=== PATIENT | male | born 1960 | race Caucasian/White ===

== ENCOUNTER 2017-07-07 22:00 | Inpatient (IN) | payer OTHER ==
[~2017-07-07] VITALS: Ht 172.7 cm; Wt 75.0 kg
[~2017-07-07 22:00] MED LIST: ALBU2.5V13 NEB; ASPI-1071 PO; ATOR20TA66 PO; HYDR-3564 PO; METO25TA6 PO; NITR0.4T48 SL; OMEP40CA37 PO; TICA90TA PO
[2017-07-07] MEDS ORDERED: ondansetron/PF 4mg/2ml inj IV ONE (22:55)
[2017-07-07] MEDS ORDERED: morphine 4 MG/ML inj SYRINge IV ONE (22:55)
[2017-07-07] MEDS ORDERED: normal saline 1000ML IV soln IVB ONE (22:55)
[2017-07-07 23:28] LABS: BASOPHILS % (AUTO) 0.1 % (0-1); EOSINOPHILS # (AUTO) 0.1 X10'3 (0-0.9); EOSINOPHILS % (AUTO) 0.4 % (0-6); HEMATOCRIT 44.3 % (42.0-52.0); HEMOGLOBIN 15.3 g/dl (14.0-17.9); LYMPHOCYTES % (AUTO) 5.9 % (21-51); MEAN CORPUSCULAR HEMOGLOBIN 31.1 PG (27.0-31.0); MEAN CORPUSCULAR HGB CONC 34.6 % (33.0-36.5); MEAN CORPUSCULAR VOLUME 89.8 FL (78-98); MEAN PLATELET VOLUME 9.6 FL (7.4-10.4); MONOCYTES # (AUTO) 0.6 X10'3 (0-0.9); MONOCYTES % (AUTO) 3.5 % (2-12); NEUTROPHILS # (AUTO) 15.6 X10'3 (1.8-7.7); NEUTROPHILS % (AUTO) 90.1 % (42-75); PLATELET COUNT 245 X10'3 (140-440); RED BLOOD COUNT 4.94 X10'6 (4.70-6.10); RED CELL DISTRIBUTION WIDTH 13.4 % (11.5-14.5); WHITE BLOOD COUNT 17.3 X10'3 (4.5-11.0)
[2017-07-07] MEDS ORDERED: CIPROFLOXIN PO (23:30)
[2017-07-07] MEDS ORDERED: CLOP75TA15 PO (23:30)
[2017-07-07 23:46] LABS: CLARITY,URINE Clear (Clear); COLOR,URINE Yellow (Yellow); GLUCOSE, URINE Negative (Neg); KETONES,URINE 80 mg/dl (Neg); LEUKOCYTE ESTERASE ,URINE Negative (Neg); NITRITES, URINE Negative (Neg); OCCULT BLOOD,URINE Negative (Neg); PH,URINE 5.5 (4.8-8.0); PROTEIN,URINE Negative (Neg)
[2017-07-07 23:49] LABS: PROTHROMBIN TIME 10.4 SECONDS (9.0-12.0)
[2017-07-07 23:51] LABS: UA COLLECTION TYPE CLN CATCH MIDSTREAM
[2017-07-08 00:04] LABS: ALANINE AMINOTRANSFERASE 46 U/L (12-78); ALBUMIN 4.2 G/DL (3.4-5.0); ALBUMIN/GLOBULIN RATIO 1.2 (1.1-1.5); ALKALINE PHOSPHATASE 77 IU/L (46-116); ANION GAP 17 (8-16); ASPARTATE AMINO TRANSFERASE 25 U/L (10-37); BILIRUBIN,TOTAL 0.8 MG/DL (0.1-1.0); BLOOD UREA NITROGEN 22 MG/DL (7-18); BUN/CREATININE RATIO 16.9 (5.4-32.0); CALCIUM 9.4 MG/DL (8.5-10.1); CHLORIDE 104 MMOL/L (99-107); ETHANOL < 0.010 GM/DL (0.0-0.010); GLUCOSE 157 MG/DL (70-104); LACTATE DEHYDROGENASE 175 U/L (85-227); LIPASE 109 U/L (73-393); POTASSIUM 3.8 MMOL/L (3.5-5.1); SODIUM 140 MMOL/L (135-145); TOTAL PROTEIN 7.7 G/DL (6.4-8.2); eGFR 58 ML/MIN
[2017-07-08] MEDS ORDERED: METO25TA6 PO (03:17)
[2017-07-08] MEDS ORDERED: ondansetron/PF 4mg/2ml inj IV PRN (04:05)
[2017-07-08] MEDS ORDERED: nitroGLYCERIN 0.4mg SUBLingual tab SL PRN (04:10)
[2017-07-08] MEDS: normal saline 1000ml 1,000 ML IV SCH ×2 (04:17→17:08)
[2017-07-08] MEDS ORDERED: pneumococcal 23-VAL P-sac vacc 25 mcg/0.5ml vial IMVAC ONE (08:55)
[2017-07-08] MEDS ORDERED: famotidine 20mg tablet PO ONE (10:50)
[2017-07-08] MEDS: piperacillin/tazo 3.375gm/50ml 50 ML IV SCH ×2 (11:09→17:18)
[2017-07-08] MEDS: metoprolol tartrate 25mg tablet PO SCH (11:09)
[2017-07-08] MEDS: morphine 4 MG/ML inj SYRINge IV PRN (12:12)
[2017-07-08 12:43] VITALS: BP 114/71
[2017-07-08 12:45] VITALS: BP 114/71
[2017-07-08 16:45] VITALS: BP 122/55
[2017-07-08] MEDS: lactobacillus rhamnosus 10,000 MMU CELLS/CAPSULE PO SCH (19:44)
[2017-07-08 20:00] VITALS: BP 95/50
[2017-07-09] VITALS: BP 125/61
[2017-07-09] MEDS: piperacillin/tazo 3.375gm/50ml 50 ML IV SCH ×4 (00:01→23:58)
[2017-07-09] MEDS: normal saline 1000ml 1,000 ML IV SCH ×3 (03:30→15:26)
[2017-07-09 05:16] LABS: BASOPHILS # (AUTO) 0.1 X10'3 (0-0.2); BASOPHILS % (AUTO) 0.7 % (0-1); EOSINOPHILS # (AUTO) 0.4 X10'3 (0-0.9); EOSINOPHILS % (AUTO) 4.3 % (0-6); HEMATOCRIT 39.4 % (42.0-52.0); HEMOGLOBIN 13.7 g/dl (14.0-17.9); LYMPHOCYTES # (AUTO) 2.3 X10'3 (1.1-4.8); LYMPHOCYTES % (AUTO) 25.2 % (21-51); MEAN CORPUSCULAR HEMOGLOBIN 31.3 PG (27.0-31.0); MEAN CORPUSCULAR HGB CONC 34.8 % (33.0-36.5); MEAN CORPUSCULAR VOLUME 89.9 FL (78-98); MEAN PLATELET VOLUME 9.3 FL (7.4-10.4); MONOCYTES # (AUTO) 0.7 X10'3 (0-0.9); MONOCYTES % (AUTO) 8.1 % (2-12); NEUTROPHILS # (AUTO) 5.6 X10'3 (1.8-7.7); NEUTROPHILS % (AUTO) 61.7 % (42-75); PLATELET COUNT 210 X10'3 (140-440); RED BLOOD COUNT 4.38 X10'6 (4.70-6.10); RED CELL DISTRIBUTION WIDTH 13.8 % (11.5-14.5); WHITE BLOOD COUNT 9.1 X10'3 (4.5-11.0)
[2017-07-09 05:34] LABS: ALANINE AMINOTRANSFERASE 38 U/L (12-78); ALBUMIN 3.2 G/DL (3.4-5.0); ALKALINE PHOSPHATASE 57 IU/L (46-116); ANION GAP 8 (8-16); ASPARTATE AMINO TRANSFERASE 33 U/L (10-37); BILIRUBIN,TOTAL 1.1 MG/DL (0.1-1.0); BLOOD UREA NITROGEN 15 MG/DL (7-18); BUN/CREATININE RATIO 12.2 (5.4-32.0); CALCIUM 8.1 MG/DL (8.5-10.1); CHLORIDE 107 MMOL/L (99-107); CREATININE 1.23 MG/DL (0.60-1.10); GLUCOSE 90 MG/DL (70-104); POTASSIUM 3.8 MMOL/L (3.5-5.1); SODIUM 142 MMOL/L (135-145); TOTAL PROTEIN 6.3 G/DL (6.4-8.2); eGFR 61 ML/MIN
[2017-07-09 07:38] VITALS: BP 103/58
[2017-07-09] MEDS: lactobacillus rhamnosus 10,000 MMU CELLS/CAPSULE PO SCH ×2 (07:52→19:16)
[2017-07-09] MEDS: metoprolol tartrate 25mg tablet PO SCH (07:53)
[2017-07-09] MEDS: morphine 4 MG/ML inj SYRINge IV PRN ×2 (08:03→19:17)
[2017-07-09 11:00] VITALS: BP 95/61
[2017-07-09 20:00] VITALS: BP 118/72
[2017-07-09] MEDS: diatr meglu/diatrizoate 30ml oral sol.-(3 dose) bottle PO SCH (22:05)
[2017-07-10] VITALS: BP 105/54
[2017-07-10] MEDS: normal saline 1000ml 1,000 ML IV SCH ×2 (04:46→16:02)
[2017-07-10 05:29] LABS: BASOPHILS % (AUTO) 0.6 % (0-1); EOSINOPHILS # (AUTO) 0.4 X10'3 (0-0.9); EOSINOPHILS % (AUTO) 5.2 % (0-6); HEMATOCRIT 40.7 % (42.0-52.0); HEMOGLOBIN 13.9 g/dl (14.0-17.9); LYMPHOCYTES # (AUTO) 1.9 X10'3 (1.1-4.8); LYMPHOCYTES % (AUTO) 24.4 % (21-51); MEAN CORPUSCULAR HEMOGLOBIN 30.9 PG (27.0-31.0); MEAN CORPUSCULAR HGB CONC 34.1 % (33.0-36.5); MEAN CORPUSCULAR VOLUME 90.7 FL (78-98); MEAN PLATELET VOLUME 9.6 FL (7.4-10.4); MONOCYTES # (AUTO) 0.7 X10'3 (0-0.9); MONOCYTES % (AUTO) 9.1 % (2-12); NEUTROPHILS # (AUTO) 4.8 X10'3 (1.8-7.7); NEUTROPHILS % (AUTO) 60.7 % (42-75); PLATELET COUNT 220 X10'3 (140-440); RED BLOOD COUNT 4.49 X10'6 (4.70-6.10); RED CELL DISTRIBUTION WIDTH 13.2 % (11.5-14.5); WHITE BLOOD COUNT 7.9 X10'3 (4.5-11.0)
[2017-07-10 05:49] LABS: ALANINE AMINOTRANSFERASE 40 U/L (12-78); ALBUMIN 3.1 G/DL (3.4-5.0); ALKALINE PHOSPHATASE 56 IU/L (46-116); ANION GAP 11 (8-16); ASPARTATE AMINO TRANSFERASE 28 U/L (10-37); BILIRUBIN,TOTAL 0.8 MG/DL (0.1-1.0); CALCIUM 8.3 MG/DL (8.5-10.1); CHLORIDE 109 MMOL/L (99-107); CREATININE 1.02 MG/DL (0.60-1.10); GLUCOSE 93 MG/DL (70-104); POTASSIUM 3.7 MMOL/L (3.5-5.1); SODIUM 143 MMOL/L (135-145); TOTAL CARBON DIOXIDE 23.2 MMOL/L (24-32); TOTAL PROTEIN 6.3 G/DL (6.4-8.2); eGFR 76 ML/MIN
[2017-07-10 06:08] LABS: BLOOD UREA NITROGEN 13 MG/DL (7-18); BUN/CREATININE RATIO 12.7 (5.4-32.0)
[2017-07-10 07:00] VITALS: BP 101/71
[2017-07-10] MEDS: diatr meglu/diatrizoate 30ml oral sol.-(3 dose) bottle PO SCH ×2 (07:53→10:30)
[2017-07-10] MEDS: lactobacillus rhamnosus 10,000 MMU CELLS/CAPSULE PO SCH ×2 (07:55→20:01)
[2017-07-10] MEDS: metoprolol tartrate 25mg tablet PO SCH (07:55)
[2017-07-10] MEDS: piperacillin/tazo 3.375gm/50ml 50 ML IV SCH ×2 (07:56→16:19)
[2017-07-10] MEDS ORDERED: pneumococcal 23-VAL P-sac vacc 25 mcg/0.5ml vial IMVAC ONE (10:00)
[2017-07-10] MEDS ORDERED: iohexol 300mg/ml 100ml inj. ONE (10:25)
[2017-07-10 11:00] VITALS: BP 128/77
[2017-07-10 13:11] VITALS: BP 137/85
[2017-07-10] MEDS: clopidogrel 75mg tablet PO SCH (13:15)
[2017-07-10 19:00] VITALS: BP 129/92
[2017-07-10] MEDS ORDERED: atorvastatin 20mg tablet PO SCH (21:00)
[2017-07-11] VITALS: BP 123/74
[2017-07-11] MEDS: piperacillin/tazo 3.375gm/50ml 50 ML IV SCH ×2 (00:22→08:27)
[2017-07-11 04:31] LABS: BASOPHILS # (AUTO) 0.1 X10'3 (0-0.2); BASOPHILS % (AUTO) 1.1 % (0-1); EOSINOPHILS # (AUTO) 0.7 X10'3 (0-0.9); EOSINOPHILS % (AUTO) 6.6 % (0-6); HEMATOCRIT 40.9 % (42.0-52.0); HEMOGLOBIN 14.1 g/dl (14.0-17.9); LYMPHOCYTES % (AUTO) 19.6 % (21-51); MEAN CORPUSCULAR HEMOGLOBIN 31.1 PG (27.0-31.0); MEAN CORPUSCULAR HGB CONC 34.6 % (33.0-36.5); MEAN CORPUSCULAR VOLUME 89.8 FL (78-98); MEAN PLATELET VOLUME 9.2 FL (7.4-10.4); MONOCYTES # (AUTO) 0.9 X10'3 (0-0.9); MONOCYTES % (AUTO) 8.7 % (2-12); NEUTROPHILS # (AUTO) 6.6 X10'3 (1.8-7.7); PLATELET COUNT 235 X10'3 (140-440); RED BLOOD COUNT 4.55 X10'6 (4.70-6.10); RED CELL DISTRIBUTION WIDTH 13.6 % (11.5-14.5); WHITE BLOOD COUNT 10.3 X10'3 (4.5-11.0)
[2017-07-11 04:45] LABS: ALANINE AMINOTRANSFERASE 44 U/L (12-78); ALBUMIN 3.1 G/DL (3.4-5.0); ALBUMIN/GLOBULIN RATIO 0.9 (1.1-1.5); ALKALINE PHOSPHATASE 62 IU/L (46-116); ANION GAP 8 (8-16); ASPARTATE AMINO TRANSFERASE 40 U/L (10-37); BILIRUBIN,TOTAL 0.4 MG/DL (0.1-1.0); BLOOD UREA NITROGEN 14 MG/DL (7-18); BUN/CREATININE RATIO 11.5 (5.4-32.0); CALCIUM 8.5 MG/DL (8.5-10.1); CHLORIDE 109 MMOL/L (99-107); CREATININE 1.22 MG/DL (0.60-1.10); GLUCOSE 99 MG/DL (70-104); POTASSIUM 4.2 MMOL/L (3.5-5.1); SODIUM 144 MMOL/L (135-145); TOTAL CARBON DIOXIDE 26.6 MMOL/L (24-32); TOTAL PROTEIN 6.4 G/DL (6.4-8.2); eGFR 62 ML/MIN
[2017-07-11 06:00] VITALS: BP 118/71
[2017-07-11] MEDS: normal saline 1000ml 1,000 ML IV SCH ×2 (06:48→12:02)
[2017-07-11 07:00] VITALS: BP 122/68
[2017-07-11] MEDS: clopidogrel 75mg tablet PO SCH (08:26)
[2017-07-11] MEDS: lactobacillus rhamnosus 10,000 MMU CELLS/CAPSULE PO SCH (08:26)
[2017-07-11] MEDS: metoprolol tartrate 25mg tablet PO SCH (08:26)
[2017-07-11] MEDS ORDERED: aspirin 81mg tablet.DR PO SCH (08:30)
[2017-07-11 11:00] VITALS: BP 122/68
[2017-07-11] MEDS ORDERED: AMOX-580 PO (12:19)
== END 2017-07-11 14:32 | disposition home or self-care (01) | DRG 395 ==
LOC: ER 22:01 → ED HOLD 07-08 04:02 → PAS IN 07-08 10:23 → SUR 3N 07-08 16:30
PROVIDERS: ADMIT Internal Medicine; ATTEND Family Medicine
DX: K35.80 Unspecified acute appendicitis (principal); F12.90 Cannabis use, unspecified, uncomplicated; I25.10 Atherosclerotic heart disease of native coronary artery without angina pectoris; J45.20 Mild intermittent asthma, uncomplicated; K21.9 Gastro-esophageal reflux disease without esophagitis; Z90.49 Acquired absence of other specified parts of digestive tract
CPT/HCPCS: 36415; 74176; 74177; 80053; 80320; 81003; 82948; 83615; 83690; 85025; 85610; 87070; 90732; 99285; J2270; J2405; J2543; J7030; J7120; Q9963; Q9967

== ENCOUNTER 2018-03-25 14:28 | Day surgery (SDC) | payer OTHER ==
[~2018-03-25] VITALS: Ht 172.7 cm; Wt 79.2 kg
[2018-03-25] VITALS (7 sets, daily range): BP systolic 108–126; BP diastolic 62–83
[~2018-03-25 14:28] MED LIST changes: -ASPI-1071 PO; +ASPI-611 PO; +CLOP75TA15 PO; +FAMO-128 PO; -HYDR-3564 PO; -OMEP40CA37 PO; -TICA90TA PO
[2018-03-25] MEDS ORDERED: diphenhydrAMINE 25mg capsule PO PRN (15:05)
[2018-03-25] MEDS ORDERED: normal saline 1000ml 1,000 ML IV SCH (15:05)
[2018-03-25] MEDS ORDERED: LORazepam 0.5 MG tablet PO PRN (15:05)
[2018-03-25] MEDS ORDERED: FAMO20TA8 PO (15:15)
[2018-03-25] MEDS ORDERED: AMLO2.5T2 PO (15:18)
[2018-03-25] MEDS ORDERED: AMOX-100 PO (15:21)
[2018-03-25] MEDS ORDERED: fentaNYL/PF 50MCG/1 ML 2ML syringe ONE (18:05)
[2018-03-25] MEDS ORDERED: iohexol 350MG/ML 100ml bottle IV ONE (18:06)
[2018-03-25] MEDS ORDERED: midazolam 2 mg/2 ml injection ONE (18:06)
[2018-03-25] MEDS ORDERED: LIDOcaine 1% 30ml preserv. free vial ONE (18:06)
== END 2018-03-25 20:35 | disposition home or self-care (01) ==
LOC: SSTAY O 14:28
PROVIDERS: ATTEND Internal Medicine Interventional Cardiology
DX: I25.118 Atherosclerotic heart disease of native coronary artery with other forms of angina pectoris (principal); E78.5 Hyperlipidemia, unspecified; I25.2 Old myocardial infarction; J45.998 Other asthma; E87.6 Hypokalemia; K21.9 Gastro-esophageal reflux disease without esophagitis; I12.9 Hypertensive chronic kidney disease with stage 1 through stage 4 chronic kidney disease, or unspecified chronic kidney disease; N18.2 Chronic kidney disease, stage 2 (mild); F10.10 Alcohol abuse, uncomplicated; Z86.74 Personal history of sudden cardiac arrest; Z79.82 Long term (current) use of aspirin; Z95.5 Presence of coronary angioplasty implant and graft; Z87.01 Personal history of pneumonia (recurrent); Z87.11 Personal history of peptic ulcer disease; Z90.49 Acquired absence of other specified parts of digestive tract; Z87.442 Personal history of urinary calculi; Z87.440 Personal history of urinary (tract) infections; Z79.2 Long term (current) use of antibiotics; Z79.899 Other long term (current) drug therapy; Z98.890 Other specified postprocedural states
CPT/HCPCS: 93005; 93458; 99152; A6257; J1644; J2250; J3010; J3490; J7030; Q0163; Q9967; 99153; A4620; C1769

== ENCOUNTER 2019-12-19 05:35 | Inpatient (IN) | payer BC, OTHER ==
[~2019-12-19] VITALS: Ht 172.7 cm; Wt 79.5 kg
[~2019-12-19 05:35] MED LIST changes: +AMLO2.5T2 PO; +AMOX-100 PO; -CLOP75TA15 PO; -FAMO-128 PO; +FAMO20TA8 PO; -METO25TA6 PO
[2019-12-19] MEDS ORDERED: aspirin 81mg tab.chew PO ONE (05:45)
[2019-12-19 06:13] LABS: BASOPHILS # (AUTO) 0.1 X10'3 (0-0.2); BASOPHILS % (AUTO) 1.2 % (0-1); EOSINOPHILS # (AUTO) 0.2 X10'3 (0-0.9); EOSINOPHILS % (AUTO) 3.9 % (0-6); HEMATOCRIT 45.3 % (42.0-52.0); HEMOGLOBIN 15.3 g/dl (14.0-17.9); LYMPHOCYTES # (AUTO) 1.9 X10'3 (1.1-4.8); LYMPHOCYTES % (AUTO) 30.6 % (21-51); MEAN CORPUSCULAR HEMOGLOBIN 30.7 PG (27.0-31.0); MEAN CORPUSCULAR HGB CONC 33.8 g/dL (33.0-36.5); MEAN CORPUSCULAR VOLUME 90.8 FL (78-98); MEAN PLATELET VOLUME 9.2 FL (7.4-10.4); MONOCYTES # (AUTO) 0.6 X10'3 (0-0.9); MONOCYTES % (AUTO) 9.7 % (2-12); NEUTROPHILS # (AUTO) 3.3 X10'3 (1.8-7.7); NEUTROPHILS % (AUTO) 54.6 % (42-75); PLATELET COUNT 253 X10'3 (140-440); RED BLOOD COUNT 4.99 X10'6 (4.70-6.10); WHITE BLOOD COUNT 6.1 X10'3 (4.5-11.0)
[2019-12-19 06:32] LABS: ALANINE AMINOTRANSFERASE 41 U/L (12-78); ALBUMIN 3.9 G/DL (3.4-5.0); ALBUMIN/GLOBULIN RATIO 1.1 (1.1-1.5); ALKALINE PHOSPHATASE 77 IU/L (46-116); ANION GAP 11 (8-16); ASPARTATE AMINO TRANSFERASE 25 U/L (10-37); BILIRUBIN,TOTAL 0.8 MG/DL (0.1-1.0); BLOOD UREA NITROGEN 15 MG/DL (7-18); BUN/CREATININE RATIO 13.3 (5.4-32.0); CALCIUM 9.2 MG/DL (8.5-10.1); CHLORIDE 105 MMOL/L (99-107); CREATININE 1.13 MG/DL (0.60-1.10); GLUCOSE 96 MG/DL (70-104); POTASSIUM 3.6 MMOL/L (3.5-5.1); SODIUM 139 MMOL/L (135-145); TOTAL CARBON DIOXIDE 22.9 MMOL/L (24-32); TOTAL PROTEIN 7.4 G/DL (6.4-8.2); eGFR 67 ML/MIN
[2019-12-19 06:35] LABS: MAGNESIUM 2.2 MG/DL (1.5-2.4)
[2019-12-19] MEDS ORDERED: pantoprazole 40 MG vial IV ONE (06:35)
[2019-12-19] MEDS ORDERED: nitroGLYCERIN 0.4mg/hour patch TD ONE (06:35)
[2019-12-19] MEDS ORDERED: normal saline 1000ML IV soln IVB ONE (06:35)
[2019-12-19] MEDS ORDERED: magnesium Cl slow-release 64mg tablet PO PRN (08:40)
[2019-12-19] MEDS ORDERED: metoprolol tartrate 1mg/ml inj IV PRN (08:40)
[2019-12-19] MEDS ORDERED: acetaminophen 325mg tablet PO PRN ×2 (08:40)
[2019-12-19] MEDS ORDERED: magnesium 2GM in 50ml NS 50 ML IV PRN (08:40)
[2019-12-19] MEDS ORDERED: aminophylline 250mg/10ml inj. IV PRN (08:40)
[2019-12-19] MEDS ORDERED: regadenoson 0.4mg/5ml syringe IV PRN (08:40)
[2019-12-19] MEDS ORDERED: docusate sod 100mg capsule PO PRN (08:40)
[2019-12-19] MEDS ORDERED: potassium CL 10mEq/100ml bag 100 ML IV PRN ×2 (08:40)
[2019-12-19] MEDS ORDERED: ondansetron/PF 4mg/2ml inj IV PRN (08:40)
[2019-12-19] MEDS ORDERED: magnesium 4gm in 100ml NS 100 ML IV PRN (08:40)
[2019-12-19] MEDS ORDERED: nitroGLYCERIN 0.4mg SUBLingual tab SL PRN (08:40)
[2019-12-19] MEDS ORDERED: HYDROcodone/acetaminophen 5mg/325mg tablet PO PRN (08:40)
[2019-12-19] MEDS ORDERED: potassium Cl 20 mEq SR tablet PO PRN ×2 (08:40)
--- NOTE | 2019-12-19 10:34 | NUR ---
PAGER ID: [phone] MESSAGE: [id number] Liseth Luna. HR in 40s-50s. No c/o lightheadedness/dizziness. Was in the 50s in ED. Just FYI. Pompa [id number]
[2019-12-19] MEDS: normal saline 1000ml 1,000 ML IV SCH ×2 (10:51→20:22)
[2019-12-19 15:00] VITALS: BP 98/52
[2019-12-19] MEDS: pantoprazole 40mg Tablet.DR PO SCH (15:35)
[2019-12-19 18:00] VITALS: BP 101/62
--- NOTE | 2019-12-19 18:39 | NUR ---
Problems reprioritized. Patient report given, questions answered & plan of care reviewed with Keli FERNANDEZ.
--- NOTE | 2019-12-19 18:41 | NUR ---
Patient in room PCU 3017. I have received report from REBECCA Pompa and had the opportunity to ask questions and assume patient care.
[2019-12-19] MEDS: morphine 2 MG/ML inj. syringe IV PRN (19:16)
[2019-12-19] MEDS ORDERED: heparin 10,000 units/1 ML INJ IV ONE (19:20)
[2019-12-19] MEDS: K and/or MAG REPLACEMENT MC SCH (19:34)
[2019-12-19] MEDS ORDERED: heparin, porcine 5000 units/ml vial SQ SCH (20:00)
[2019-12-19] MEDS: temazepam 15mg capsule PO PRN (20:22)
[2019-12-19 20:37] LABS: PARTIAL THROMBOPLASTIN TIME 30 SECONDS (22-32)
[2019-12-19 20:40] LABS: BASOPHILS # (AUTO) 0.1 X10'3 (0-0.2); BASOPHILS % (AUTO) 0.5 % (0-1); EOSINOPHILS # (AUTO) 0.2 X10'3 (0-0.9); EOSINOPHILS % (AUTO) 1.7 % (0-6); HEMOGLOBIN 13.4 g/dl (14.0-17.9); LYMPHOCYTES # (AUTO) 1.6 X10'3 (1.1-4.8); LYMPHOCYTES % (AUTO) 17.1 % (21-51); MEAN CORPUSCULAR HEMOGLOBIN 30.6 PG (27.0-31.0); MEAN CORPUSCULAR HGB CONC 33.5 g/dL (33.0-36.5); MEAN CORPUSCULAR VOLUME 91.1 FL (78-98); MEAN PLATELET VOLUME 9.6 FL (7.4-10.4); MONOCYTES # (AUTO) 0.7 X10'3 (0-0.9); MONOCYTES % (AUTO) 7.2 % (2-12); NEUTROPHILS % (AUTO) 73.5 % (42-75); PLATELET COUNT 245 X10'3 (140-440); RED BLOOD COUNT 4.39 X10'6 (4.70-6.10); RED CELL DISTRIBUTION WIDTH 13.4 % (11.5-14.5); WHITE BLOOD COUNT 9.5 X10'3 (4.5-11.0)
[2019-12-19] MEDS: heparin 25,000 UNIT/250ml bag 250 ML IV SCH (20:49)
[2019-12-19 22:00] VITALS: BP 104/61
[2019-12-20 02:00] VITALS: BP 127/69
[2019-12-20] MEDS: morphine 2 MG/ML inj. syringe IV PRN (02:28)
[2019-12-20 03:48] LABS: BASOPHILS # (AUTO) 0.1 X10'3 (0-0.2); BASOPHILS % (AUTO) 0.5 % (0-1); EOSINOPHILS # (AUTO) 0.3 X10'3 (0-0.9); HEMATOCRIT 45.3 % (42.0-52.0); HEMOGLOBIN 14.9 g/dl (14.0-17.9); LYMPHOCYTES % (AUTO) 14.5 % (21-51); MEAN CORPUSCULAR HGB CONC 32.9 g/dL (33.0-36.5); MEAN CORPUSCULAR VOLUME 91.1 FL (78-98); MEAN PLATELET VOLUME 9.4 FL (7.4-10.4); MONOCYTES % (AUTO) 6.9 % (2-12); NEUTROPHILS # (AUTO) 10.7 X10'3 (1.8-7.7); NEUTROPHILS % (AUTO) 76.1 % (42-75); PLATELET COUNT 239 X10'3 (140-440); RED BLOOD COUNT 4.97 X10'6 (4.70-6.10); WHITE BLOOD COUNT 14.1 X10'3 (4.5-11.0)
[2019-12-20 03:54] LABS: ALANINE AMINOTRANSFERASE 39 U/L (12-78); ALBUMIN 3.9 G/DL (3.4-5.0); ALBUMIN/GLOBULIN RATIO 1.1 (1.1-1.5); ALKALINE PHOSPHATASE 79 IU/L (46-116); ANION GAP 14 (8-16); ASPARTATE AMINO TRANSFERASE 23 U/L (10-37); BILIRUBIN,TOTAL 0.8 MG/DL (0.1-1.0); BLOOD UREA NITROGEN 17 MG/DL (7-18); BUN/CREATININE RATIO 16.2 (5.4-32.0); CALCIUM 8.6 MG/DL (8.5-10.1); CHLORIDE 105 MMOL/L (99-107); CHOL/HDL RATIO 1.9 (0.00-4.99); CHOLESTEROL 122 MG/DL (0-200); CREATININE 1.05 MG/DL (0.60-1.10); GLUCOSE 114 MG/DL (70-104); HDL CHOLESTEROL 65 MG/DL (35-60); LDL CHOLESTEROL 50 MG/DL (50-100); POTASSIUM 3.7 MMOL/L (3.5-5.1); SODIUM 139 MMOL/L (135-145); TOTAL CARBON DIOXIDE 19.6 MMOL/L (24-32); TOTAL PROTEIN 7.6 G/DL (6.4-8.2); TRIGLYCERIDES 83 MG/DL (20-135); eGFR 73 ML/MIN
[2019-12-20] MEDS: normal saline 1000ml 1,000 ML IV SCH ×2 (05:14→14:36)
[2019-12-20 06:00] VITALS: BP 110/70
[2019-12-20] MEDS: heparin 25,000 UNIT/250ml bag 250 ML IV SCH ×2 (06:15→12:56)
--- NOTE | 2019-12-20 07:33 | NUR ---
page to Dr Rosado regarding ASCENCION scan requirement: PAGER ID: [phone] MESSAGE: Parviz Luna [id number]: Nuc Med will not be doing a ASCENCION scan at this time due to up-trending troponin value. Requires a cardiology clearance to proceed today.
[2019-12-20] MEDS ORDERED: amLODIPine 2.5mg tablet PO SCH (08:00)
[2019-12-20] MEDS: K and/or MAG REPLACEMENT MC SCH ×2 (08:00→19:07)
[2019-12-20] MEDS: pantoprazole 40mg Tablet.DR PO SCH (08:35)
[2019-12-20] MEDS: aspirin 81mg tablet.DR PO SCH (08:36)
[2019-12-20] MEDS: atorvastatin 20mg tablet PO SCH (08:49)
[2019-12-20] MEDS ORDERED: pneumococcal 23-VAL P-sac vacc 25 mcg/0.5ml vial IMVAC ONE (10:00)
[2019-12-20 11:00] VITALS: BP 110/65
[2019-12-20 15:00] VITALS: BP 122/81
--- NOTE | 2019-12-20 17:57 | NUR ---
Pt. says He has a history of having some renal issues following a heart cath in the past.
[2019-12-20 18:00] VITALS: BP 124/82
--- NOTE | 2019-12-20 18:02 | NUR ---
page to Dr. Rosado: PAGER ID: [phone] MESSAGE: Parviz Luna: [id number]: Pt. States that He had renal issues following a heart cath procedure in the past. Shashi Roa RN PCU
[2019-12-20] MEDS: temazepam 15mg capsule PO PRN (19:54)
[2019-12-20] MEDS: heparin 10,000 units/1 ML INJ IV PRN (20:16)
[2019-12-20 22:00] VITALS: BP 121/73
[2019-12-21] VITALS (14 sets, daily range): BP systolic 109–139; BP diastolic 68–87
[2019-12-21] MEDS: normal saline 1000ml 1,000 ML IV SCH ×2 (01:12→10:36)
[2019-12-21 02:55] LABS: BASOPHILS # (AUTO) 0.1 X10'3 (0-0.2); BASOPHILS % (AUTO) 0.7 % (0-1); EOSINOPHILS # (AUTO) 0.3 X10'3 (0-0.9); EOSINOPHILS % (AUTO) 2.8 % (0-6); HEMATOCRIT 42.2 % (42.0-52.0); LYMPHOCYTES # (AUTO) 2.3 X10'3 (1.1-4.8); LYMPHOCYTES % (AUTO) 19.1 % (21-51); MEAN CORPUSCULAR HEMOGLOBIN 30.3 PG (27.0-31.0); MEAN CORPUSCULAR HGB CONC 33.2 g/dL (33.0-36.5); MEAN CORPUSCULAR VOLUME 91.3 FL (78-98); MEAN PLATELET VOLUME 9.5 FL (7.4-10.4); MONOCYTES # (AUTO) 0.9 X10'3 (0-0.9); MONOCYTES % (AUTO) 7.7 % (2-12); NEUTROPHILS # (AUTO) 8.3 X10'3 (1.8-7.7); NEUTROPHILS % (AUTO) 69.7 % (42-75); PLATELET COUNT 237 X10'3 (140-440); RED BLOOD COUNT 4.62 X10'6 (4.70-6.10); WHITE BLOOD COUNT 11.9 X10'3 (4.5-11.0)
[2019-12-21 03:08] LABS: ALBUMIN 3.3 G/DL (3.4-5.0); ANION GAP 10 (8-16); BILIRUBIN,TOTAL 0.6 MG/DL (0.1-1.0); BLOOD UREA NITROGEN 7 MG/DL (7-18); BUN/CREATININE RATIO 6.5 (5.4-32.0); CALCIUM 8.3 MG/DL (8.5-10.1); CHLORIDE 107 MMOL/L (99-107); CREATININE 1.08 MG/DL (0.60-1.10); GLUCOSE 97 MG/DL (70-104); MAGNESIUM 1.9 MG/DL (1.5-2.4); POTASSIUM 3.6 MMOL/L (3.5-5.1); SODIUM 139 MMOL/L (135-145); TOTAL CARBON DIOXIDE 22.4 MMOL/L (24-32); TOTAL PROTEIN 6.7 G/DL (6.4-8.2); eGFR 70 ML/MIN
[2019-12-21 03:09] LABS: ALANINE AMINOTRANSFERASE 29 U/L (12-78); ALKALINE PHOSPHATASE 71 IU/L (46-116); ASPARTATE AMINO TRANSFERASE 19 U/L (10-37)
[2019-12-21] MEDS: heparin 25,000 UNIT/250ml bag 250 ML IV SCH ×2 (05:26→10:16)
--- NOTE | 2019-12-21 06:00 | NUR ---
Patient in room PCU 3017. I have received report from Raissa FERNANDEZ and had the opportunity to ask questions and assume patient care.
--- NOTE | 2019-12-21 06:24 | NUR ---
Problems reprioritized. Patient report given, questions answered & plan of care reviewed with Shwetha FERNANDEZ.
[2019-12-21] MEDS: K and/or MAG REPLACEMENT MC SCH ×2 (07:10→20:00)
[2019-12-21] MEDS: atorvastatin 20mg tablet PO SCH (07:18)
[2019-12-21] MEDS: pantoprazole 40mg Tablet.DR PO SCH (07:18)
[2019-12-21] MEDS: aspirin 81mg tablet.DR PO SCH (07:18)
[2019-12-21] MEDS: heparin 10,000 units/1 ML INJ IV PRN (10:14)
[2019-12-21] MEDS ORDERED: LIDOcaine/PRILOcaine 5gm cream TP ONE (11:00)
[2019-12-21] MEDS ORDERED: fentaNYL/PF 50MCG/1 ML 2ML syringe ONE (15:53)
[2019-12-21] MEDS ORDERED: LIDOcaine 1% (10mg/ml)w/preservative injection 20ml MDV ONE (15:53)
[2019-12-21] MEDS ORDERED: verapamil 2.5 mg/ml inj IV ONE (15:53)
[2019-12-21] MEDS ORDERED: iohexol 350MG/ML 100ml bottle IV ONE (15:53)
[2019-12-21] MEDS ORDERED: midazolam 2 mg/2 ml injection ONE (15:53)
[2019-12-21] MEDS ORDERED: nitroGLYCERIN-Tridil 50MG/D5W 250 ML IV ONE (15:53)
[2019-12-21] MEDS ORDERED: heparin 1,000unit/ml 10ml vial 10 ML ONE (15:53)
--- NOTE | 2019-12-21 17:00 | NUR ---
I spoke with Dr. Rosado on the phone and he medically cleared him after his insignificant cardiac cath this afternoon. HE wanted the patient to stay for all of his post op vitals and release of compression band. He also wanted the patient to walk to make sure he had no chest pain before discharge. If the patient experiences chest pain, or any complications night MD should be notified for reevaluation of discharge to home this evening.
[2019-12-21] MEDS ORDERED: HYDROcodone/acetaminophen 10/325mg tab PO PRN (17:15)
[2019-12-21] MEDS ORDERED: HYDROcodone/acetaminophen 5mg/325mg tablet PO PRN (17:15)
[2019-12-21] MEDS ORDERED: nitroGLYCERIN 0.4mg SUBLingual tab SL PRN (17:15)
[2019-12-21] MEDS ORDERED: OXAZEpam 15mg capsule PO PRN (17:15)
[2019-12-21] MEDS ORDERED: proCHLORperazine 10 MG/2 ml inj IV PRN (17:15)
--- NOTE | 2019-12-21 18:00 | NUR ---
Problems reprioritized. Patient report given, questions answered & plan of care reviewed with Raissa FERNANDEZ and Debo FERNANDEZ.
--- NOTE | 2019-12-21 18:47 | NUR ---
Patient in room PCU 3017. I have received report from Shwetha FERNANDEZ and had the opportunity to ask questions and assume patient care.
--- NOTE | 2019-12-21 21:00 | NUR ---
Patient's hemostatic wristband has been fully deflated, removing 2mls of air at a time until all the air is out. Wristband has been removed without issues and band aide placed over site. No bleeding or bruising noted. Pulses intact and no impairment of sensation.
--- NOTE | 2019-12-21 22:32 | NUR ---
Patient discharged at this time. Stable for discharge. Radial cath site looks good with no bleeding or hematoma. All discharge instructions provided to patient and he verbalized understanding. He said that he will call Dr. Mallory's office tomorrow for a follow up appointment with him. PIV and tele removed. Patient left with all of his belongings, including meds that were stored in the pharmacy and his tobacco pipe which was held by security. He was assisted down to the lobby in a wheelchair by staff and left via private vehicle with his .
--- NOTE | 2019-12-21 22:35 | NUR ---
Patient was discharged to home. He was stable upon discharge. Tele box and PIV X2 removed. Patient thanked us for our excellent care and was happy that his was able to pick him up.
== END 2019-12-21 22:35 | disposition home or self-care (01) | DRG 247 ==
LOC: ER 05:35 → ED HOLD 08:36 → PCU 3S 10:21
PROVIDERS: ADMIT Internal Medicine; ATTEND Internal Medicine
PROC: 4A023N7 Measurement of Cardiac Sampling and Pressure, Left Heart, Percutaneous Approach (ICD-10-PCS; principal; 2019-12-19)
PROC: B2111ZZ Fluoroscopy of Multiple Coronary Arteries using Low Osmolar Contrast (ICD-10-PCS; 2019-12-19)
PROC: 027034Z Dilation of Coronary Artery, One Artery with Drug-eluting Intraluminal Device, Percutaneous Approach (ICD-10-PCS; 2019-12-21)
DX: I21.4 Non-ST elevation (NSTEMI) myocardial infarction (principal); E78.5 Hyperlipidemia, unspecified; F12.90 Cannabis use, unspecified, uncomplicated; I10 Essential (primary) hypertension; I25.10 Atherosclerotic heart disease of native coronary artery without angina pectoris; I25.2 Old myocardial infarction; J45.909 Unspecified asthma, uncomplicated; K21.9 Gastro-esophageal reflux disease without esophagitis; Z79.82 Long term (current) use of aspirin; Z79.899 Other long term (current) drug therapy; Z95.5 Presence of coronary angioplasty implant and graft
CPT/HCPCS: 36415; 71045; 80053; 80061; 83735; 83880; 84484; 85025; 85610; 85730; 87081; 90732; 93005; 93306; 93458; 99152; 99153; 99285; A4620; A5120; C1769; C1894; C9113; G0378; J1644; J2001; J2250; J2270; J2405; J3010; J3490; J7030; Q9967